=== PATIENT | male | born 1955 | race Hispanic/Latino ===

== ENCOUNTER 2023-06-02 08:00 | Emergency (ER) | payer MEDICARE, SELFPAY ==
[2023-06-02 08:12] VITALS: BP 148/87
--- NOTE | 2023-06-02 09:27 | ED.GENMED ---
History of Present Illness
General
Chief Complaint: Cough
Source: patient
Exam Limitations: none
Time Seen by Provider: 06/02/23 08:37
Nursing documentation reviewed up to this point in time: agreed with
Travel History
Have you had any contact with someone who has COVID-19?: No
Do you have any symptoms of coronavirus? Fever > 100 degrees, chills, cough, shortness of breath, sore throat, loss of taste or smell, muscle aches, or headache?: Yes
Symptoms:: cough/ sob
History of Present Illness
History of Present Illness:
67-year-old male presents to the ER complaining of cough and shortness of breath . He had this 4 weeks ago which lasted for 1 week and then he reports it resolved. Cough came back and has been present for the past several weeks. He does feel
tight and short of breath with it. It is worse with weather changes and reports his cold weather better with warm weather. He typically gets this once to twice a year and has had bronchitis in the past. He has seen pulmonology for this. He has
not been on inhaler at home and try to use this yesterday. He presented this morning because he reports was very short of breath last night. No assoicated fevers
Past History
Past History
ED Past Medical History: HTN, Hypercholesterolemia and NIDDM
ED Past Surgical History: None
Social History
Tobacco: Non-smoker
Alcohol: None
Personal:
Living: with family
Review of Systems
Review of Systems
Allergies reviewed?: Yes
All Other Systems: ROS reviewed and negative except as documented in HPI and ROS
Constitutional: Reports no symptoms; Denies fever, fatigue or chills
Respiratory: Reports cough and trouble breathing
Cardiac: Reports no symptoms
ABD/GI: Reports no symptoms
: Reports no symptoms
Musculoskeletal: Reports no symptoms
Skin: Reports no symptoms
Neurological: Reports no symptoms
Hematologic/Lymphatic: Reports no symptoms
Psychiatric: Reports no symptoms
Phy Exam
General Physical Exam
General Presentation: no apparent distress
General age: appears stated age
General Skin: warm and dry
General Habitus: normal
General Mental: alert
General Hydration: appears well hydrated
Cardiovascular Exam
Cardiovascular Exam: regular rate/rhythm, no murmur and normal peripheral pulses
Pulmonary Exam
Pulmonary Exam: lungs clear and no respiratory distress
Neurological Exam
Neurological Exam: alert and oriented x3
Musculoskeletal Exam
Musculoskeletal Exam: full ROM
Skin Exam
Skin Exam: normal color and warm/dry
Psychiatric Exam
Psychiatric Exam: normal mood/affect
Course
Orders/Labs/Results
Orders:
Orders
06/02/23 09:24
IV Insert/Care/Rem.- Treatment PRN
Chest [CR Chest - 2 Views ] Urgent
Comment:
Reason For Exam: sob
06/02/23 09:25
Electrocardiogram (*1) Stat
Reason for Study: Other
Other Reason for Exam: chest pain
Cardiac Monitoring- Treatment ONCE
EKG- Treatment ONCE
06/02/23 09:31
Albuterol Nebs [Ventolin Nebules] 2.5 mg INH R NOW STA
06/02/23 09:43
Complete Blood Count/With Diff Urgent
Comprehensive Metabolic Panel Urgent
06/02/23 12:02
Prednisone [Deltasone] 40 mg PO NOW STA
06/02/23 12:03
Ipratropium/Albuterol Sulfate [Duoneb] 3 ml INH R NOW STA
Abnormal Lab Results
06/02/23
09:43
RBC 4.26 L 10^6/uL
(4.70-6.10)
MCH 32.4 H pg
(27.0-31.0)
Absolute Monos (auto) 0.9 H 10^3/uL
(0.1-0.6)
Absolute Eos (auto) 0.8 H 10^3/uL
(0-0.7)
Monocytes % 9.8 H %
(1.7-9.3)
Eosinophils % 8.4 H %
(0-6)
Glucose 106 H mg/dl
(70-99)
06/02/23 09:43
06/02/23 09:43
Vital Signs
Initial and Last Documented VS:
Initial Vital Signs
Temp Pulse Resp BP Pulse Ox
98.4 F 65 20 148/87 97
06/02/23 08:12 06/02/23 08:12 06/02/23 08:12 06/02/23 08:12 06/02/23 08:12
Last Documented Vital Signs
Temp Pulse Resp BP Pulse Ox
98.4 F 65 21 128/85 100
06/02/23 08:12 06/02/23 12:30 06/02/23 12:15 06/02/23 12:00 06/02/23 12:30
MDM/Problems Addressed
Differential Diagnosis Includes:
not limited to: Viral infection bronchitis pneumonia
MDM/Problems Addressed:
Symptoms are consistent with bronchitis. Patient is in no acute distress denies any fevers is afebrile here with a normal white count no acute findings of pneumonia on chest x-ray. Patient was given a neb here feeling better he does request
steroids short course as this has helped for him in the past. He is a diabetic I reviewed this with patient. Will give 1 dose of 40 mg now and DC on 40 mg daily for the next 4 days with inhaler with close outpatient follow-up family doctor he may
follow-up with his [employer] as discussed.
*Critical Care Note
Total Time (30-74mins, 75-104mins- exclusive of procedures): Not Applicable
ED Attending Note
-
Portions of this chart may have been created with voice recognition software.� Occasional wrong word or��sound alike� substitutions may have occurred due to the inherent limitations of voice recognition software.
Discharge Plan
Departure
Patient Disposition: Home (Routine Discharge)
Date of Disposition: 06/02/23
Time of Disposition: 12:52
Patient with high blood pressure during this ER visit?: Yes
Covid-19: Not Applicable
Discharge Problem:
Bronchitis
Instructions: Acute Bronchitis, Adult (DC), BLOOD PRESSURE
Prescriptions:
New
prednisone 20 mg tablet
40 mg PO DAILY Qty: 8 0RF
Proair Digihaler 90 mcg/actuation aero powdr breath act w/sensor
90 mcg inhalation Q6H PRN (Reason: shortness of breath or wheezing) Qty: 1 0RF
No Action
atorvastatin 40 MG tablet
40 mg PO QPM
aspirin 81 MG tablet,delayed release (DR/EC)
81 mg PO DAILY
ramipril 5 MG capsule
5 mg PO DAILY
ezetimibe 10 MG tablet
10 mg PO DAILY
metformin [Fortamet] 500 MG tablet extended release 24hr
500 mg PO BID
omega-3 acid ethyl esters [Lovaza] 1 G capsule
1 g PO BID
Ginkgo Biloba
1 cap PO DAILY
Multi Vitamin
1 tab PO .EVERY OTHER DAY
Referrals:
Osbaldo Spain MD [Active] -
Moraima Sultana MD [Family Provider] -
Activity Restrictions/Additional Instructions:
As discussed use your inhaler as needed. A prescription for steroids was sent to your pharmacy to take daily for the next 4 days starting tomorrow. Follow-up closely with family doctor and/or your [employer] in the next several days for
reevaluation return if any worsening of symptoms
Interventions
Interventions:
*Risk Screen - Suicide Last Done: 06/02/23 08:12
*General Assessment Last Done: 06/02/23 08:12
*Neglect/Abuse Screening Last Done: 06/02/23 08:12
ED- Pulmonary Assessment Last Done: 06/02/23 09:45
Discharge Date and Time
Print Language: DIVEHI
[2023-06-02 09:38] VITALS: BP 132/77
[2023-06-02 09:43] VITALS: BMI 32.5
[2023-06-02] MEDS: VENTOLIN NEBULES 2.5 MG INH (09:46)
[2023-06-02 09:54] LABS: % Eosinophils 8.4 % (0-6); % Immature Granulocytes 0.3 % (0-0.5); % Lymphocytes 21.9 % (20.5-51.1); % Monocytes 9.8 % (1.7-9.3); % Neutrophils 58.6 % (42.2-75.2); Absolute Basophils 0.1 10^3/uL (0-0.2); Absolute Eosinophils 0.8 10^3/uL (0-0.7); Absolute Lymphocytes 2.1 10^3/uL (1.2-3.4); Absolute Monocytes 0.9 10^3/uL (0.1-0.6); Absolute Neutrophils 5.7 10^3/uL (1.4-6.5); Hematocrit 39.6 % (39.0-52.0); Hemoglobin 13.8 g/dL (13.0-18.0); Mean Corp Hgb Conc. 34.8 g/dL (33.0-37.0); Mean Corpuscular Hgb 32.4 pg (27.0-31.0); Mean Platelet Volume 9.4 fL (7.4-10.4); Nucleated Red Blood Cells % 0 % (-); Platelet Count 178 10^3/uL (130-400); Red Blood Cell Count 4.26 10^6/uL (4.70-6.10); Red Cell Dist. Width 12.9 % (11.5-14.5); White Blood Cell Count 9.6 10^3/uL (4.8-10.8)
[2023-06-02 10:04] VITALS: BP 139/78
[2023-06-02 10:21] LABS: ALT (SGPT) 34 U/L (0-50); AST (SGOT) 34 U/L (17-59); Albumin 4.7 g/dl (3.5-5.0); Alkaline Phosphatase 51 U/L (38-126); Blood Urea Nitrogen 17 mg/dl (9-20); Calcium 9.4 mg/dl (8.4-10.2); Carbon Dioxide 26 mmol/L (22-30); Chloride 106 mmol/L (98-107); Estimated Creatinine Clearance 108 ml/min; Glucose 106 mg/dl (70-99); Potassium 4.4 mmol/L (3.5-5.1); Sodium 138 mmol/L (135-145); Total Protein 7.3 g/dl (6.3-8.2); eGFR > 60.00
[2023-06-02 11:27] VITALS: BP 136/80
[2023-06-02 12:00] VITALS: BP 128/85
[2023-06-02] MEDS: DELTASONE 40 MG PO (12:21)
[2023-06-02] MEDS: DUONEB 3 ML INH (12:22)
== END 2023-06-02 13:10 | disposition home or self-care (01) ==
LOC: EMR 08:00
PROVIDERS: Nurse Practitioner; EMERGENCY PHYSICIAN Emergency Medicine; FAMILY PHYSICIAN Family Medicine
DX: J40 Bronchitis, not specified as acute or chronic (principal); I10 Essential (primary) hypertension; E11.9 Type 2 diabetes mellitus without complications
CPT/HCPCS: 99285; 94640; 71046; 80053; 85025; 93005

== ENCOUNTER → 2024-03-26 13:01 | Outpatient (REF) | payer MEDICARE, SELFPAY | LOC: HWRAD 13:01 | PROVIDERS: ATTENDING PHYSICIAN Internal Medicine Critical Care Medicine; FAMILY PHYSICIAN Family Medicine | DX: R06.02 Shortness of breath (principal); J98.4 Other disorders of lung | CPT/HCPCS: 71250 ==

== ENCOUNTER → 2024-03-31 14:56 | Outpatient (REF) | payer MEDICARE, SELFPAY | LOC: HWRAD 14:56 | PROVIDERS: ATTENDING PHYSICIAN Family Medicine; REFERRING PHYSICIAN Internal Medicine Critical Care Medicine | DX: E04.1 Nontoxic single thyroid nodule (principal) | CPT/HCPCS: 76536 ==